=== PATIENT | male | born 1960 ===

== ENCOUNTER → 2023-12-28 | Day surgery (SDC) | payer OTHER ==
[~2023-12-28] VITALS: Ht 165.1 cm; Wt 68.0 kg
[~2023-12-28] MED LIST: BUPIVACAINE HCL/MPF 0.5% 30ML VIAL ONE; BUPIVACAINE HCL/PF 0.25% 30ML VIAL InF ONE; CEFTRIAXONE SODIUM 2,000 MG VIAL IV ONE; CELEBREX200MG PO; ENOXAPARIN SODIUM 40 MG/0.4 ML SYRINGE SUBCUTANEO ONE; METRONIDAZOLE/SODIUM CHLORIDE 500 MG/100 ML PIGGYBACK IV ONE; MORPHINE SULFATE 4 MG/ML VIAL IV ONE; NEURONTIN300 MG PO; PERCOCET 5-3251 EACH PO; POLY119PG PO; SUGAMMADEX SODIUM 200 MG/2 ML VIAL IV ONE
== END | disposition home or self-care (01) ==
LOC: ADM 12-22 10:00 → CIR.AMB 07:11
PROVIDERS: ATTEND Surgery
DX: K40.90 Unilateral inguinal hernia, without obstruction or gangrene, not specified as recurrent (principal)
CPT/HCPCS: 49650; C1781